=== PATIENT | female | born 1955 | race Caucasian/White ===

== ENCOUNTER 2021-11-05 15:08 | Observation (INO) | payer OTHER ==
[~2021-11-05] VITALS: Ht 162.6 cm; Wt 82.0 kg
[~2021-11-05 15:08] MED LIST: ACCUPRIL20 MG PO; ACCURETI1 PO; AMOX/K CLAV500 MG PO; AMOXICILLIN500 MG PO; ASPIRIN CHEWABL81 MG PO; CELEBREX100 M1 PO; EQL FOLIC ACI400 MCG; ISOSORB MONO60 MG PO; MULTI VITAMIN1 TAB PO; PHENTERMINE HYD15 MG PO; PLAVIX75 MG PO; PNEUMOVAX 23 IM; TRANSDERM-1 MG/3 DAY EX; VITAMIN B123000 MCG PO; VITAMIN C500 M1 PO; XANAX0.25 MG PO; [UNRECOGNIZED DRUG - OTHER] PO
[2021-11-05 15:49] LABS: URINE BILIRUBIN - DIPSTICK NEGATIVE (NEGATIVE); URINE BLOOD DIPSTICK NEGATIVE (NEGATIVE); URINE COLOR YELLOW; URINE GLUCOSE - DIPSTICK NEGATIVE (NEGATIVE); URINE KETONE NEGATIVE (NEGATIVE); URINE LEUK ESTERASE NEGATIVE (NEGATIVE); URINE PROTEIN - DIPSTICK NEGATIVE (NEG-TRACE); URINE SPECIFIC GRAVITY <=1.005; URINE UROBILINOGEN - DIPSTICK 0.2 E.U./dL (0.2)
[2021-11-05 15:50] LABS: URINE NITRITE - DIPSTICK POSITIVE (Negative)
[2021-11-05 15:59] LABS: HEMATOCRIT 41.5 % (37.0-47.0); IMMATURE GRANULOCYTES 0.1 % (0.0-5.0); MEAN CORPUSCULAR HGB 30.4 pG CALC (26.0-32.0); MEAN CORPUSCULAR HGB CONC 33.7 g/dL CAL (32.0-36.0); NEUT# 5.97 thou/uL (2.00-7.15); RED BLOOD COUNT 4.61 mill/uL (4.20-5.60); RED CELL DISTRI WIDTH 12.3 % (11.5-15.5)
[2021-11-05 16:03] LABS: URINE BACTERIA MODERATE hpf; URINE RBC 0-2 RBC/hpf (0-5)
[2021-11-05 16:37] LABS: ALBUMIN 4.3 g/dL (3.2-5.0); ALKALINE PHOSPHATASE 82 u/l (38-126); ANION GAP 13 (6-22 (CALC)); BILIRUBIN, TOTAL 0.5 mg/dL (0.0-1.4); BUN 14 mg/dL (8-23); BUN/CREATININE RATIO 17 (12-20 (CALC)); CARBON DIOXIDE 25 mmol/l (22-30); CHLORIDE 105 mmol/l (95-108); CREATININE 0.9 mg/dL (0.5-1.0); GFR FOR AFR.AMER. > 60 ML/MIN (>=60 (CALC)); GFR OTHER RACES > 60 ML/MIN (>=60 (CALC)); LIPASE 140 u/l (23-300); SGOT/AST 28 u/l (9-36); SODIUM 139 mmol/l (137-146); TOTAL PROTEIN 7.6 g/dL (6.3-8.2)
[2021-11-05 18:07] LABS: PROTHROMBIN TIME 10.1 SECONDS (9.0-12.5)
[2021-11-05 18:51] LABS: C-REACTIVE PROTEIN < 0.5 mg/dL (0-0.9); CALCULATED LDLCHOLESTEROL 190 mg/dL (62-129 (CALC)); CHOLESTEROL HDL RATIO 5.7 (<4.4 (CALC)); HDL CHOLESTEROL 49 mg/dL (>=40); TOTAL CHOLESTEROL 280 mg/dl (0-199); TOTAL TRIGLYCERIDES 206 mg/dl (30-149); VLDL CHOLESTROL 41 mg/dl (1-41 (CALC))
[2021-11-05 21:09] VITALS: BP 142/72
[2021-11-06 00:30] VITALS: BP 113/53
[2021-11-06 04:18] VITALS: BP 123/66
[2021-11-06 05:57] LABS: HEMATOCRIT 40.8 % (37.0-47.0); HEMOGLOBIN 13.6 g/dl (12.0-16.0); MEAN CELL VOLUME 92.5 fL CALC (80.0-100.0); MEAN CORPUSCULAR HGB 30.8 pG CALC (26.0-32.0); MEAN CORPUSCULAR HGB CONC 33.3 g/dL CAL (32.0-36.0); RED BLOOD COUNT 4.41 mill/uL (4.20-5.60); RED CELL DISTRI WIDTH 12.6 % (11.5-15.5)
[2021-11-06 06:16] LABS: ANION GAP 10 (6-22 (CALC)); BUN 12 mg/dL (8-23); BUN/CREATININE RATIO 14 (12-20 (CALC)); CARBON DIOXIDE 26 mmol/l (22-30); CHLORIDE 105 mmol/l (95-108); CREATININE 0.9 mg/dL (0.5-1.0); GFR FOR AFR.AMER. > 60 ML/MIN (>=60 (CALC)); GFR OTHER RACES > 60 ML/MIN (>=60 (CALC)); MAGNESIUM 1.9 mg/dL (1.6-2.3); POTASSIUM 4.3 mmol/l (3.5-5.1); SODIUM 137 mmol/l (137-146)
[2021-11-06 06:31] VITALS: BP 123/66
== END 2021-11-06 11:06 | disposition home or self-care (01) | DRG 149 ==
LOC: ED 15:08 → ED-I 18:16 → ED 18:34 → MS2 18:35 → ED 18:35 → MS2 11-06 11:06
PROVIDERS: Family Medicine; ADMIT Hospitalist; ATTEND Hospitalist
DX: R42 Dizziness and giddiness (principal); R61 Generalized hyperhidrosis; R82.71 Bacteriuria; Z20.822 Contact with and (suspected) exposure to COVID-19
CPT/HCPCS: G0378; J1650; Q9967